=== PATIENT | male | born 1945 | race Caucasian/White ===

== ENCOUNTER 2017-08-17 16:31 | Emergency (ER) | payer OTHER ==
[~2017-08-17] VITALS: Ht 160 cm; Wt 81.5 kg
[2017-08-17 17:16] LABS: HEMATOCRIT 35.8 % (38.0-50.0); MCH 29.8 PG (29.0-34.0); MCHC 33.5 G/DL (30.0-36.0); MCV 88.8 FL (86-99); MEAN PLAT.VOLUME 10.5 uM^3 (9.0-12.4); PLATELET COUNT 188 K/uL (156-360); RBC DIS.WIDTH-CV 12.6 % (11.8-14.6); RED BLOOD COUNT 4.03 M/uL (4.00-5.50); WHITE BLOOD COUNT 10.9 K/uL (4.1-10.2)
[2017-08-17 17:21] LABS: CARBON DIOXIDE (BICARBONATE) 25.5 MEQ/L (20-31)
[2017-08-17 17:29] LABS: CHLORIDE 100 mEq/L (99-109); POTASSIUM 5.4 mEq/L (3.7-5.4); SODIUM 130 mEq/L (136-147)
[2017-08-17 17:32] LABS: ANION GAP 10 MEQ/L (2-14)
[2017-08-17 17:35] LABS: GFR ESTIMATE (CALCULATED) 43 mL/min/
[2017-08-17 17:36] LABS: UREA NITROGEN (BUN) 41 mg/dL (9-23)
[2017-08-17 17:42] LABS: GLUCOSE 500 mg/dL (70-99)
[2017-08-17 18:37] LABS: ADD MIUA? YES; BILIRUBIN NEGATIVE; BLOOD SMALL; COLOR YELLOW ((YELLOW)); GLUCOSE (STRIP) >=500; KETONES NEGATIVE; LEUKOCYTES NEGATIVE; NITRITE NEGATIVE; PROTEIN (STRIP) NEGATIVE; SPECIFIC GRAVITY 1.024 (1.000-1.030); UROBILINOGEN 0.2 MG/DL (0.2-1.0)
[2017-08-17 18:42] LABS: BACTERIA NONE SEEN /HPF; EPITHELIAL CELLS NONE SEEN /HPF; HYALINE CASTS 0-5 /LPF; MUCUS TRACE /LPF; RED BLOOD CELLS 0-5 /HPF (0-5); UCUL ADDED? NO; WHITE BLOOD CELLS 0-5 /HPF (0-5)
[2017-08-17] MEDS ORDERED: TRULICITY0.75 MG/0. SC (20:08)
[2017-08-17] MEDS ORDERED: DIOVAN HCT 31 TABLE1 PO (20:09)
[2017-08-17] MEDS ORDERED: HUMALOG100 UNIT/2 SC (20:09)
[2017-08-17] MEDS ORDERED: TERAZOSIN HCL10 MG PO (20:09)
[2017-08-17] MEDS ORDERED: PRAVASTATIN SOD40 MG PO (20:09)
[2017-08-17] MEDS ORDERED: ALDACTONE25 MG PO (20:10)
[2017-08-17] MEDS ORDERED: VITAMIN D31000 UNIT PO (20:10)
[2017-08-17] MEDS ORDERED: CLONIDINE HCL0.1 MG PO (20:10)
[2017-08-17] MEDS ORDERED: LOPRESSOR100 M1 PO (20:10)
[2017-08-17] MEDS ORDERED: AMLODIPINE BESY10 MG PO (20:10)
[2017-08-17] MEDS ORDERED: HYDROCHLOROTHIA25 MG PO (20:10)
[2017-08-17] MEDS ORDERED: MEN'S 50 PLUS1 EACH PO (20:11)
[2017-08-17] MEDS ORDERED: TYLENOL ARTHRI650 MG PO (20:11)
[2017-08-17] MEDS ORDERED: ADULT LOW DOSE81 M1 PO (20:11)
[2017-08-17 20:49] LABS: POINT-OF-CARE METER ID UU13113800
[2017-08-17 22:17] LABS: CHLORIDE 108 mEq/L (99-109); POTASSIUM 5.1 mEq/L (3.7-5.4); SODIUM 136 mEq/L (136-147)
[2017-08-17 22:19] LABS: GLUCOSE 325 mg/dL (70-99)
[2017-08-17 22:20] LABS: ANION GAP 9 MEQ/L (2-14)
[2017-08-17 22:23] LABS: GFR ESTIMATE (CALCULATED) 49 mL/min/
[2017-08-17 22:24] LABS: UREA NITROGEN (BUN) 38 mg/dL (9-23)
[2017-08-17] MEDS ORDERED: ZOFRAN4 MG PO (23:04)
[2017-08-17 23:31] VITALS: BP 166/70
[2017-08-22 12:18] LABS: POINT-OF-CARE METER ID UU13113778
== END 2017-08-17 23:31 | disposition home or self-care (01) ==
LOC: EME 16:31
PROVIDERS: Physician Assistant
DX: E11.65 Type 2 diabetes mellitus with hyperglycemia (principal); Z91.14 Patient's other noncompliance with medication regimen; I10 Essential (primary) hypertension; R11.2 Nausea with vomiting, unspecified; Z79.4 Long term (current) use of insulin
CPT/HCPCS: 80048; 80048 91; 81003; 82010; 82803; 82948; 85027; 93005; 99281; 99285; J2405; J2765; J7030